=== PATIENT | female | born 1985 | race Caucasian/White ===

== ENCOUNTER 2017-06-23 05:30 | Inpatient (IN) | payer OTHER ==
[~2017-06-23 05:30] MED LIST: Acetaminophen 500 MG TAB PO PRN; Carboprost 250 MCG/ML AMP IM PRN; HYDROcodone/Acetaminophen 5/325 mg Tablet PO PRN; Ibuprofen 800 MG TAB PO PRN; LR / Pitocin 40 units/1000 ml 1,000 ML IV PRN; LR 500 ML/Oxytocin 10 units 500 ML IV SCH; Lidocaine 1% (PF) 30 ML VIAL SC PRN; Misoprostol 200 MCG TAB PR PRN; Ondansetron HCl/PF 4 MG/2 ML Vial IVP PRN; Promethazine HCl 25 MG/ML VIAL IM PRN
[2017-06-23] MEDS: Lactated Ringer's 1,000 ML IV SCH ×4 (07:57→13:08)
[2017-06-23 08:21] VITALS: BMI 25.7
[2017-06-23 08:23] LABS: Hemoglobin 10.1 g/dL (12.0-16.0); Mean Corpuscular HGB CONC 32.3 g/dL (32.0-36.0); Mean Corpuscular Hemoglobin 27.3 pg (27.0-31.0); Mean Corpuscular Volume 84.4 fl (81.0-99.0); Mean Platelet Volume 8.8 fL (7.4-10.4); Platelet Count 208 thou/uL (130-400); RBC Distribution Width 12.5 % (11.5-14.5); White Blood Cell (WBC) Count 5.3 thou/uL (4.8-10.8)
[2017-06-23 09:01] LABS: Syphilis Antibody Nonreactive (Nonreactive); Syphilis Antibody Index 0.03 S/CO (<1.00 Non-Reactive)
[2017-06-23 09:02] LABS: HBSAg Index 0.24 S/CO (0-0.99); Hep B Surf Ag Non-Reactive S/CO (NonReactive)
[2017-06-23] MEDS ORDERED: Bupivacaine 0.5% 20 ML, Fentanyl 400 MCG in Sodium Chloride 0.9% 72 ML EPIDURAL SCH (09:30)
[2017-06-23] MEDS: ePHEDrine/0.9% NaCl/PF SYRINGE 50 mg/10 ml SLOW IVP PRN ×2 (09:58→10:26)
[2017-06-23] MEDS ORDERED: diphenhydrAMINE 50 MG/ML VIAL IVP PRN (10:19)
[2017-06-23] MEDS ORDERED: Lactated Ringer's 500 ML IV PRN (10:19)
[2017-06-23] MEDS ORDERED: Ondansetron HCl/PF 4 MG/2 ML Vial IVP PRN (10:19)
[2017-06-23] MEDS ORDERED: Acetaminophen 325 MG TAB PO PRN (10:19)
[2017-06-23] MEDS ORDERED: Naloxone HCl 0.4 mg/ml Vial IVP PRN ×2 (10:19)
[2017-06-23] MEDS ORDERED: Promethazine HCl 25 MG/ML VIAL IM PRN (10:19)
[2017-06-23] MEDS ORDERED: Eucerin (Mineral Oil/Petrolatum,White) 30 gm Jar TOP PRN (10:19)
[2017-06-23] MEDS ORDERED: Communication Order-Pharmacy FS SCH (10:30)
[2017-06-23] MEDS ORDERED: Fentanyl 4mcg/Marcaine 0.1% Cassette 100 ML EPIDURAL SCH (10:30)
--- NOTE | 2017-06-23 10:56 | PDOC.EVN ---
Event Note - Event Note Event Note: I was called to the room for prolonged deceleration to 80s lasting approximately 6 minutes with return to baseline after pitocin off, knee chest position, and oxygen. FSE and IUPC placed. Continue to monitor.
--- NOTE | 2017-06-23 10:58 | PDOC.LDPN ---
Labor & Delivery Progress Note - Subjective Subjective: comfortable, other (prolonged deceleration) - Objective Vital signs reviewed and normal: yes General: NAD Uterine fundus: non tender Dilation: 4 Effacement: 50% Station: -2 FHT: category 2 IUPC placed: yes FSE placed: yes Resuscitative measures: maternal oxygen, maternal position change Plan: resuscitative measures -: HR improved to normal baseline with moderate variability. Will continue to monitor.
[2017-06-23] MEDS ORDERED: Bupivacaine/Epinephrine 0.25% 30 ML VIAL ONE (11:11)
[2017-06-23] MEDS ORDERED: traMADol HCl 50 MG TAB PO PRN (16:19)
[2017-06-23] MEDS ORDERED: Lanolin Ointment 7 GM TUBE TOP PRN (16:19)
[2017-06-23] MEDS ORDERED: Preparation H Ointment 28 GM TUBE PR PRN (16:19)
[2017-06-23] MEDS ORDERED: diphenhydrAMINE 25 MG CAP PO PRN (16:19)
[2017-06-23] MEDS ORDERED: Bisacodyl 10 MG SUPP PR PRN (16:19)
[2017-06-23] MEDS ORDERED: Benzocaine/Menthol 20-0.5% 60 ML CAN TOP PRN (16:19)
[2017-06-23] MEDS ORDERED: Milk Of Magnesia 30 ML UDCUP PO PRN (16:19)
--- NOTE | 2017-06-23 16:22 | PDOC.OPDEL ---
OB Operative/Delivery Note Delivery Dr/Surgeon: Hipolito Pre-Delivery Diagnosis: elective induction Procedure/Post Delivery Dx: spontaneous vaginal delivery Weeks gestation: 40 Anesthesia: epidural - Findings A Sex: male Weight: 8 lb 7 oz - 1 min: 8 - 5 min: 9 - Additional Findings/Plan Placenta delivered: spontaneous Repaired Obstetrical Laceration: 2nd degree Estimated blood loss: 250ml Post delivery plan: routine recovery
[2017-06-23] MEDS ORDERED: LR / Pitocin 40 units/1000 ml 1,000 ML IV SCH (16:30)
[2017-06-23] MEDS: Ferrous Sulfate 325 MG TAB PO SCH (18:39)
[2017-06-23] MEDS ORDERED: Ondansetron HCl/PF 4 MG/2 ML Vial SLOW IVP PRN (19:01)
[2017-06-24] MEDS: Ibuprofen 800 MG TAB PO SCH ×4 (00:19→21:12)
[2017-06-24] MEDS: Docusate Calcium (SURFAK) 240 MG CAP PO SCH ×3 (00:20→21:11)
--- NOTE | 2017-06-24 08:22 | PDOC.PP ---
Post Progress Note Post Day #: 1 PO intake tolerated: yes Flatus: yes Ambulation: yes Vital Signs (12 hours) Temp Pulse Resp BP 06/24/17 08:14 97.6 F 59 L 20 121/70 06/24/17 05:30 98.5 F 68 18 101/55 L 06/23/17 23:31 98.5 F 61 18 108/55 L Weight Weight 155 lb - Physical Examination General: NAD Cardiovascular: no m/r/g, RRR Respiratory: clear to auscultation bilaterally, non-labored breathing Abdominal: + bowel sounds, lochia, no distention, appropriately TTP Result Diagrams: 06/23/17 07:57 Additional Labs: Post Labs Hep Bs Antigen Non-Reactive S/CO (NonReactive) 06/23/17 07:57 - Assessment/Plan post day0-1 doing well d/c in am
[2017-06-24] MEDS ORDERED: Adacel (T-DAP) 0.5 ML VIAL IM ONE (09:00)
[2017-06-24] MEDS: Prenatal Vitamin 1 TAB PO SCH (10:07)
[2017-06-24] MEDS: Ferrous Sulfate 325 MG TAB PO SCH ×2 (10:35→17:05)
[2017-06-25] MEDS: Ibuprofen 800 MG TAB PO SCH (06:41)
--- NOTE | 2017-06-25 07:59 | PDOC.PP ---
Post Progress Note Post Day #: 2 PO intake tolerated: yes Flatus: yes Ambulation: yes Weight Weight 155 lb Result Diagrams: 06/23/17 07:57 Additional Labs: Post Labs Hep Bs Antigen Non-Reactive S/CO (NonReactive) 06/23/17 07:57 - Assessment/Plan post day 2-doing well. d/c home. f/u 6 weeks.
[2017-06-25] MEDS: Ferrous Sulfate 325 MG TAB PO SCH (08:45)
[2017-06-25] MEDS: Prenatal Vitamin 1 TAB PO SCH (09:21)
[2017-06-25] MEDS: Docusate Calcium (SURFAK) 240 MG CAP PO SCH (09:21)
[2017-06-25 09:35] VITALS: BP 115/68; TEMP 97.8
== END 2017-06-25 13:30 | disposition home or self-care (01) | DRG 775 ==
LOC: L&D 07:00 → 3SW 18:30
PROVIDERS: ADMIT Obstetrics & Gynecology; ATTEND Obstetrics & Gynecology
PROC: 0KQM0ZZ Repair Perineum Muscle, Open Approach (ICD-10-PCS; principal; 2017-06-23)
PROC: 10E0XZZ Delivery of Products of Conception, External Approach (ICD-10-PCS; 2017-06-23)
DX: O70.1 Second degree perineal laceration during delivery (principal); Z37.0 Single live birth; Z3A.40 40 weeks gestation of pregnancy
CPT/HCPCS: 51702; 85027; 86780; 87340; J2001; J2405; J3010; J3490; J7050; J7120